=== PATIENT | female | born 1950 | race Caucasian/White ===

== ENCOUNTER 2018-10-04 18:10 | Emergency (ER) | payer SELFPAY ==
[~2018-10-04] VITALS: Wt 71.0 kg
[2018-10-04 18:17] VITALS: BP 122/60; PULSE 81; RESP 18
[2018-10-04] MEDS ORDERED: KETOROLAC 30 MG INJ IM STA (20:21)
[2018-10-04] MEDS ORDERED: IBUP-1542 PO (21:08)
--- NOTE | 2018-10-04 21:22 | ERD ---
ER Documentation Chief Complaint Chief Complaint LEFT FOOT PAIN X 2 DAYS HPI 68-year-old female twisted her ankle 2 weeks ago. She has pain in the left heel and also in the left lateral joint. She has restricted range of motion weakness. She denies significant difficulty ambulating ROS All systems reviewed and are negative except as per history of present illness. Medications Home Meds Active Scripts Ibuprofen* (Motrin*) 600 Mg Tab, 600 MG PO Q6, #20 TAB Prov:MITA PADGETT MD 10/04/18 Allergies Allergies: Coded Allergies: No Known Allergy (Unverified , 10/04/18) PMhx/Soc Medical and Surgical Hx: pt denies Surgical Hx Hx Miscellaneous Medical Probl: Yes (THYROID) Hx Alcohol Use: No Hx Substance Use: No Hx Tobacco Use: No Smoking Status: Never smoker Physical Exam Vitals Vital Signs Date Temp Pulse Resp B/P (MAP) Pulse Ox O2 O2 Flow FiO2 Time Delivery Rate 10/04/18 98.1 81 18 122/60 99 18:17 (80) Physical Exam Const: No acute distress Head: Atraumatic Eyes: Normal Conjunctiva ENT: Normal External Ears, Nose and Mouth. Neck: Full range of motion. No meningismus. Resp: Clear to auscultation bilaterally Cardio: Regular rate and rhythm, no murmurs Abd: Soft, non tender, non distended. Normal bowel sounds Skin: No petechiae or rashes Back: No midline or flank tenderness Ext: No cyanosis, or edema. Tenderness in the left medial tarsal area left lateral joint line. She has no exquisite tenderness. No restricted range of motion or weakness. Neur: Awake and alert Psych: Normal Mood and Affect Results 24 hrs Current Medications Medications Dose Sig/Milo Start Time Status Last (Trade) Ordered Route PRN Stop Time Admin Dose Reason Admin Ketorolac 30 mg ONCE STAT 10/04/18 DC 10/04/18 Tromethamine IM 20:21 10/04/18 20:35 (Toradol) 20:23 Procedures/MDM X-ray Ankle 3V Interpreted by me: Bones: No acute fracture. There is an area of well-corticated accessory ossification at the distal fibula. Joints: No dislocation Foreign Body: None. Impression-degenerative changes and a corticated ossification fragment of the left ankle distal fibular area without acute fracture, dislocation. Presents in the left ankle Mauro bandage. Immobilization was deferred given minimal limp. Patient has left ankle pain after twisting it 2 weeks ago. She has no signs of acute fracture, dislocation no point tenderness at the accessory ossicle seen on x-ray. She will be discharged home with orthopedic and primary care follow-up and instructions for ice, continue Mauro wrap, ibuprofen, and orthopedic evaluation. She was advised she may need authorization from primary doctor for orthopedist visit. No signs of septic arthritis, ischemia, deficits or infection. Departure Diagnosis: Primary Impression: Injury of foot Encounter type: initial encounter Laterality: left Qualified Codes: S99.922A - Unspecified injury of left foot, initial encounter Condition: Stable Patient Instructions: Sprain, Ankle, With X-Ray Referrals: NO PRIMARY,CARE PHYSICIAN (PCP) KUN THOMAS MD Additional Instructions: tiene artritis. posiblemenbte fractura humphrey. Va al kline doctor/ specialista para mas evaluacon en el proximo semana. posiblemente necesita autorizado de kline doctor primario para specialista. Regresa para fiebre, o mas o nueva simptomas. MITA PADGETT MD Oct 04, 2018 21:22
== END 2018-10-04 21:54 | disposition home or self-care (01) ==
LOC: FTE 18:10
DX: S99.922A Unspecified injury of left foot, initial encounter (principal); X50.1XXA Overexertion from prolonged static or awkward postures, initial encounter; Y92.9 Unspecified place or not applicable
CPT/HCPCS: 73610; 73630; 96372; 99284; J1885